=== PATIENT | male | born 1995 | race Caucasian/White ===

== ENCOUNTER 2019-09-28 01:28 | Emergency (ER) | payer MEDICAID ==
[~2019-09-28] VITALS: Ht 172.7 cm; Wt 82.2 kg
[2019-09-28 01:35] VITALS: Ht 172.7 cm; Wt 82.2 kg
[2019-09-28 02:43] VITALS: BP 117/66
== END 2019-09-28 02:56 | disposition home or self-care (01) ==
LOC: ED 01:28
DX: J20.9 Acute bronchitis, unspecified (principal); J45.909 Unspecified asthma, uncomplicated
CPT/HCPCS: 87804; J7613; Q0092